=== PATIENT | male | born 1980 | race Caucasian/White ===

== ENCOUNTER → 2018-07-27 | Outpatient (REF) ==
--- NOTE | 2018-07-28 04:04 | REP ---
Clinical: Back pain. Technique: AP, lateral, coned-down views of the lumbosacral spine. Findings: Alignment and lordosis maintained. Vertebral bodies, disc spaces, and surrounding soft tissues are relatively normal for age. Minimal disc space narrowing at L5-L1 noted. Impression: Minimal disc space narrowing at L5-S1. Electronically Signed by Barry Wynne MD 07/28/2018 03:55 A
== END ==
LOC: M SMT 13:24
PROVIDERS: ATTEND Internal Medicine
DX: Z00.00 Encounter for general adult medical examination without abnormal findings (principal)